=== PATIENT | female | born 1960 | race African-American/Black ===

== ENCOUNTER 2018-07-04 10:39 | Inpatient (IN) | payer BC ==
[~2018-07-04] VITALS: Ht 167.6 cm; Wt 81.6 kg
[2018-07-04] MEDS ORDERED: ALBU18HF2 IH (10:48)
[2018-07-04] MEDS ORDERED: TETANUS, DIPHTHERIA, PERTUSSIS VAC/PF 0.5ML (>7YR OLD) IM ONE (11:00)
[2018-07-04] MEDS ORDERED: LIDOCAINE 1%/EPI 1:100,000 10 ML VIAL IJ ONE (11:00)
[2018-07-04] MEDS ORDERED: DEXTROSE 50% WATER 50ML SYRINGE IV ONE (11:15)
[2018-07-04 11:26] LABS: EOSINOPHILS % 7.6 % (0.0-5.0); HEMATOCRIT. 42.7 % (36.0-48.0); LYMPHOCYTES % 23.8 % (20.0-50.0); MEAN CORPUSCULAR VOLUME 82.3 fL (81.0-99.0); MEAN PLATELET VOLUME 8.6 fl (7.4-10.4); MONOCYTES % 5.6 % (2.0-8.0); PLATELET 150 x1000/uL (130-400); RED BLOOD CELL COUNT 5.19 mill/uL (4.2-5.4); RED CELL DISTRIBUTION WIDTH 15.7 % (11.6-14.6)
[2018-07-04 11:33] LABS: CHLORIDE 108 mEq/L (98-107)
[2018-07-04] MEDS ORDERED: LIDOCAINE HCL/EPINEPHRINE 1%-EPI 1:100,000 20 ML VIAL INFIL NR (11:45)
[2018-07-04] MEDS ORDERED: OXYCODONE HCL/ACETAMINOPHEN 5/325MG TABLET PO ONE (13:00)
[2018-07-04] MEDS ORDERED: ACETAMINOPHEN 325MG TABLET PO PRN (15:00)
[2018-07-04] MEDS ORDERED: ONDANSETRON HCL 4MG/2ML INJ IV PRN (15:00)
[2018-07-04] MEDS ORDERED: CLONIDINE 0.1MG TABLET PO PRN (15:00)
[2018-07-04 16:40] VITALS: BP 154/74
[2018-07-04] MEDS ORDERED: DEXTROSE 10% WATER 500 ML IV ONE (17:00)
[2018-07-04 17:24] VITALS: BP 154/74
[2018-07-04] MEDS ORDERED: DEXTROSE 50% WATER 50ML SYRINGE IV PRN (19:00)
[2018-07-04 20:00] VITALS: BP 146/60
[2018-07-04] MEDS: HYDROCODONE/ACETAMINOPHEN 5/325MG TABLET PO PRN (20:10)
[2018-07-04] MEDS: BLOOD SUGAR DIAGNOSTIC STRIP TEST SCH (20:29)
[2018-07-05] VITALS: BP 154/65
[2018-07-05 04:00] VITALS: BP_SYST 108; BP_SYST 116; BP_SYST 124; BP_DIAS 61; BP_DIAS 78; BP_DIAS 81
[2018-07-05] MEDS: HYDROCODONE/ACETAMINOPHEN 5/325MG TABLET PO PRN ×3 (06:35→20:53)
[2018-07-05 06:57] LABS: BASOPHILS % 1.4 % (0.0-2.0); EOSINOPHILS % 13.3 % (0.0-5.0); HEMATOCRIT. 43.8 % (36.0-48.0); HEMOGLOBIN. 14.1 g/dL (12.0-16.0); LYMPHOCYTES % 30.9 % (20.0-50.0); MEAN CORPUSCULAR HEMOGLOBIN 26.6 pg (28.0-32.0); MEAN CORPUSCULAR VOLUME 82.3 fL (81.0-99.0); NEUTROPHILS % 49.4 % (40.0-76.0); PLATELET 181 x1000/uL (130-400); RED BLOOD CELL COUNT 5.32 mill/uL (4.2-5.4); RED CELL DISTRIBUTION WIDTH 15.8 % (11.6-14.6)
[2018-07-05] MEDS: BLOOD SUGAR DIAGNOSTIC STRIP TEST SCH ×4 (07:51→22:09)
[2018-07-05 08:00] VITALS: BP 136/64
[2018-07-05 08:04] LABS: BETA HYDROXYBUTYRATE 0.1 mMol/L (0.0-0.3)
[2018-07-05 12:00] VITALS: BP 128/74
[2018-07-05] MEDS ORDERED: DEXT 10% WATER 1,000 ML IV SCH (12:30)
[2018-07-05] MEDS ORDERED: SODIUM CHLORIDE 0.9% 1,000 ML IV SCH (12:45)
[2018-07-05 15:00] LABS: CLARITY URINE CLEAR (CLEAR); COLOR URINE YELLOW (YELLOW); KETONES URINE NEGATIVE (NEGATIVE); LEUKOCYTE ESTERASE URINE 1+ (NEGATIVE); NITRITE URINE NEGATIVE (NEGATIVE); OCCULT BLOOD URINE NEGATIVE (NEGATIVE); PROTEIN URINE NEGATIVE (NEGATIVE); SPECIFIC GRAVITY URINE 1.012 (1.005-1.030); UROBILINOGEN URINE 0.2 E.U./dL (0.2-1.0)
[2018-07-05 16:00] VITALS: BP 143/75
[2018-07-05 20:00] VITALS: BP 113/69
[2018-07-06] VITALS: BP 124/54
[2018-07-06] MEDS: SODIUM CHLORIDE 0.45% 1,000 ML IV SCH ×2 (01:14→12:50)
[2018-07-06 04:00] VITALS: BP_SYST 106; BP_SYST 109; BP_SYST 125; BP_DIAS 65; BP_DIAS 70; BP_DIAS 77
[2018-07-06] MEDS: BLOOD SUGAR DIAGNOSTIC STRIP TEST SCH ×2 (06:19→12:40)
[2018-07-06 07:02] LABS: BASOPHILS % 2.5 % (0.0-2.0); EOSINOPHILS % 11.1 % (0.0-5.0); HEMATOCRIT. 42.6 % (36.0-48.0); HEMOGLOBIN. 13.9 g/dL (12.0-16.0); MEAN CORPUSCULAR HEMOGLOBIN 26.8 pg (28.0-32.0); MEAN CORPUSCULAR VOLUME 81.9 fL (81.0-99.0); MEAN PLATELET VOLUME 8.4 fl (7.4-10.4); MONOCYTES % 8.6 % (2.0-8.0); NEUTROPHILS % 45.8 % (40.0-76.0); PLATELET 166 x1000/uL (130-400); RED CELL DISTRIBUTION WIDTH 15.8 % (11.6-14.6)
[2018-07-06 07:47] LABS: CHLORIDE 108 mEq/L (98-107)
[2018-07-06 07:55] LABS: PHOSPHORUS 3.5 mg/dL (2.5-4.9)
[2018-07-06 07:58] LABS: CREATINE KINASE 135 IU/L (26-192)
[2018-07-06 08:00] VITALS: BP 131/63
[2018-07-06] MEDS: HYDROCODONE/ACETAMINOPHEN 5/325MG TABLET PO PRN ×2 (08:21→16:08)
[2018-07-06 12:00] VITALS: BP 138/70
[2018-07-06 16:00] VITALS: BP 142/87
[2018-07-06 16:42] VITALS: BP 142/81
[2018-07-07 13:13] LABS: C-PEPTIDE 2.9 ng/mL (1.1-4.4); INSULIN 6.9 uIU/mL (2.6-24.9)
[2018-07-07 13:13] LABS: C-PEPTIDE 2.1 ng/mL (1.1-4.4); INSULIN 4.5 uIU/mL (2.6-24.9)
[2018-07-09 13:09] LABS: PRO INSULIN 3.8 pmol/L (0.0-10.0)
[2018-07-12 17:11] LABS: INSULIN AUTOANTIBODIES < 5.0 uU/mL (.)
== END 2018-07-06 18:00 | disposition home or self-care (01) | DRG 73 ==
LOC: ER 10:39 → 7WST 14:11 → ENRESERV 14:22
PROVIDERS: ADMIT Internal Medicine; ATTEND Internal Medicine
DX: G90.8 Other disorders of autonomic nervous system (principal); N17.0 Acute kidney failure with tubular necrosis; E87.2 Acidosis; E16.2 Hypoglycemia, unspecified; E03.9 Hypothyroidism, unspecified; E04.1 Nontoxic single thyroid nodule; E87.8 Other disorders of electrolyte and fluid balance, not elsewhere classified; I10 Essential (primary) hypertension; J45.909 Unspecified asthma, uncomplicated; S01.01XA Laceration without foreign body of scalp, initial encounter; X58.XXXA Exposure to other specified factors, initial encounter; Z79.890 Hormone replacement therapy; Z80.42 Family history of malignant neoplasm of prostate; Z82.49 Family history of ischemic heart disease and other diseases of the circulatory system; Z83.3 Family history of diabetes mellitus; Y93.89 Activity, other specified; Y92.89 Other specified places as the place of occurrence of the external cause; Y99.8 Other external cause status
CPT/HCPCS: 36415; 71045; 76536; 76770; 80048; 80061; 80377; 82010; 82533; 82550; 82947; 82962; 83036; 83525; 83735; 83880; 84100; 84206; 84439; 84443; 84484; 84681; 86337; 86376; 90715; 93005; 93306; 93970; 96374; 99285; J3490